=== PATIENT | female | born 1985 | race Caucasian/White ===

== ENCOUNTER 2023-02-18 16:16 | Emergency (ER) | payer OTHER, SELFPAY ==
[2023-02-18 16:20] VITALS: BP 130/92; PULSE 87; RESP 18; TEMP 36.4; O2SAT 100; BMI 22.6
--- NOTE | 2023-02-18 16:34 | EDS_ITS ---
HPI HPI - Female History of Present Illness Chief Complaint: Female C/O Narrative Narrative: 37-year-old female states that she did a home test which was positive. She did it twice last week. Last menstrual period was at the end of December, over a month ago. She states that today she began having vaginal spotting with pinkish tinge to the toilet paper after urination. She had left-sided flank cramping that was very fleeting has resolved. She presents because she has had a history of ectopic , which required D&C she states. They did not remove her fallopian tube, but there is scarring. She is a G3, P1 with her daughter being born 3 years ago. She presents for evaluation because she is from out of town, and before she returns home she wants to make sure that everything is okay. PFSH PFSH Medical History no medical history no medical history Allergy/AdvReac Type Severity Reaction Status Date / Time Penicillins Allergy Hives Verified 02/18/23 16:20 codeine AdvReac headache Verified 02/18/23 16:20 Social History Smoking Status: Never smoker ROS ROS ED ROS Narrative Constitutional: No fever, no chills. HEENT: No sore throat. No neck pain. No loss of vision. No rhinorrhea. Cardiovascular: No chest pain. No palpitations. No pedal edema. Respiratory: No cough, no shortness of breath. Abdominal: No abdominal pain. No nausea. No vomiting. Genitourinary: No dysuria. Questionable hematuria versus vaginal bleeding/spotting. Positive home test last week x2. Musculoskeletal: No myalgias. No arthralgias. Neurologic: No headaches. No dizziness. No lightheadedness. Skin: No rash. No change in color. Psychiatric: No depression. No anxiety. EXAM Physical Exam Narrative Exam Narrative: Afebrile. Vital signs noted. HEENT: Normocephalic. Atraumatic. PERRL, EOMI. Neck soft and supple. No point tenderness or step off. Cardiovascular: Regular rate and rhythm. No murmurs, rubs, or gallops appreciated. Respiratory: No tachypnea. Lungs clear to auscultation bilaterally. Gastrointestinal: Abdomen soft, nontender, with normoactive bowel sounds. No rebound or guarding. Genitourinary: Chaperoned pelvic examination reveals no dried blood externally, no vaginal bleeding, os is closed on bimanual examination. No adnexal t enderness. Neurological: Awake. Alert. Nonfocal, nonlateralizing. Skin: No rash. Normal color. No pallor. Musculoskeletal: No pedal edema. Full range of motion extremities. Const Vital Signs: 02/18/23 16:20 Temperature 97.6 F L Temperature Source Temporal Pulse Rate 87 Respiratory Rate 18 Blood Pressure 130/92 H Blood Pressure Mean 104 Pulse Ox 100 Oxygen Delivery Method Room Air MDM MDM MDM Narrative Medical decision making narrative: Concern would be for ectopic versus early . UTI is in the differential as she states she is having vaginal spotting on the toilet paper with pinkish tinge. Urinalysis will be obtained and sent along with urine . I will also order blood work in the form of CBC, CMP, and quantitative beta-hCG. As she does not know her blood type or if she received RhoGAM after her previous pregnancies, ABO Rh will be obtained I reviewed her laboratory work and she has a normal white count of 7.5, he moglobin normal at 12.1, hematocrit 37.4, platelet count normal at 284. hCG urine is positive. Quantitative measurement is only 270. I do not feel that ultrasound is indicated although initially ordered because there is no evidence of bleeding on her pelvic examination, and she is not having pelvic pain, and her quantitative measurement is still low. She was told that this could be indicative of early or possibly ectopic . Her urinalysis shows no evidence of RBCs or WBCs, and I do not feel antibiotics are indicated. I discussed patient with Dr. Yeager with [employer] who agrees with close outpatient follow-up. I stressed the importance of repeat beta hCG at this facility in 48 hours. While the patient states that she was make an appointment with her [employer] [facility] who is [place] state, she was given strict return instructions to return with any vaginal bleeding or pelvic pain. She does understand the importance as she has had ectopic in the past and risk of rupture. I feel she be discharged safely home with follow-up. She is also to call Dr. Yeager's office in 2 days for close follow-up, and to have her quantitative beta-hCG drawn on [birth year] 21, 1939 8 hours from now. Disposition is discharged home in stable condition. History & Record Review Additional record(s) reviewed:: No prior records Lab Data Attestation: I reviewed the patient's lab results. Labs: Laboratory Results - last 24 hr 02/18/23 16:45 WBC 7.5 RBC 3.85 L Hgb 12.1 Hct 37.4 MCV 97.1 MCH 31.4 MCHC 32.4 RDW Std Deviation 42.5 RDW Coeff of Tania 11.9 Plt Count 284 MPV 10.8 Immature Gran % (Auto) 0.100 Neut % (Auto) 50.3 Lymph % (Auto) 35.4 Lamar % (Auto) 6.8 Eos % (Auto) 6.5 H Baso % (Auto) 0.9 Absolute Neuts (auto) 3.8 Absolute Lymphs (auto) 2.67 Nucleated RBC % 0 HCG, Quant 270 H Urine Color Yellow Urine Clarity Clear Urine pH 6.0 Ur Specific Chaplin 1.015 Urine Protein 15 H Urine Glucose (UA) Normal Urine Ketones 5 H Urine Occult Blood Negative Urine Nitrite Negative Urine Bilirubin Negative Urine Urobilinogen Normal Ur Leukocyte Esterase 25 H Urine RBC 0 SEEN Urine WBC 0-5 SEEN Ur Squamous Epith Cells 0-5 SEEN Urine Bacteria 0 SEEN Urine Mucus 0 SEEN Urine Test Positive H Management Discussion w/another healthcare provider: [facility] (Dr. Yeager) Discharge Plan Triage Chief Complaint: Female C/O ED Provider: Dominguez Phan Dx/Rx/DC Orders Clinical Impression: Headache, test positive Instructions: ED , New Dx Other Ambulatory Orders: HCG BETA-SUBUNIT QUANT. (Routine) Timeframe: 2 Days Facility: [facility] - Location: Laboratory Ordered By: Dominguez Phan Primary Care Provider: Care Physician,No Primary Referrals: Tina Saenz MD [Med Staff - Active Staff] - 2 Days Care Physician,No Primary [Primary Care Provider] - Activity Restrictions/Additional Instructions: It is imperative that you have your beta hCG redrawn at this hospital in 2 days, on Sunday. There should be a laboratory order waiting for you. Follow-up with Dr. Yeager in 2 days as well. Call the office for an appointment. Return with vaginal bleeding, pelvic pain, new or worsening symptoms. Disposition Disposition: Home, Self Care
[2023-02-18 16:48] LABS: Bacteria 0 SEEN /hpf (None Seen); Mucous, Urine 0 SEEN /hpf (<or=2+); Red Blood Cells-Urine 0 SEEN /hpf (0-5)
[2023-02-18 16:51] LABS: Absolute Lymphocyte Count 2.67 X10^3/uL (0.83-4.51); Absolute Neutrophil Count 3.8 X10^3/uL (2.0-7.7); Basophil# 0.07 X10^3/uL; Basophil% 0.9 % (0-1); Eosinophil# 0.49 X10^3/uL; Eosinophils% 6.5 % (0-5); Hematocrit 37.4 % (37-47); Hemoglobin 12.1 g/dL (12.0-15.0); Lymphocyte # 2.67 X10^3/ul (0.83-4.51); Lymphocyte % 35.4 % (19-41); Mean Corp Hgb Conc 32.4 g/dL (32-36); Mean Corpuscular Hgb 31.4 pg (27.0-32.0); Mean Corpuscular Volume 97.1 fL (81-99); Mean Platelet Vol. 10.8 fl (6.2-12.0); Monocyte# 0.51 X10^3/uL; Monocyte% 6.8 % (0-10); NRBC Flagged by Analyzer 0 % (0-5); Neutrophil # 3.79 X10^3/uL (2.7-7.7); Neutrophil % 50.3 % (47-70); Platelet Count 284 K/mm3 (150-450); RBC Distribution Width CV 11.9 % (11.6-14.6); RBC Distribution Width SD 42.5 fl (35.1-43.9); Red Blood Count 3.85 M/mm3 (4.2-5.4); White Blood Count 7.5 K/mm3 (4.4-11.0)
[2023-02-18 16:52] LABS: Color, Urine Yellow (Yellow); Glucose, Dipstick Normal (Normal); Ketone-Dipstick 5 mg/dl (Negative); Leukocyte Esterase-Dipstick 25 /ul (Negative); Nitrite-Dipstick Negative (Negative); Occult Blood-Urine Negative /ul (Negative); Protein-Dipstick 15 mg/dl (Negative); Specific Gravity, Urine 1.015 (1.002-1.030); Urine Bilirubin Dipstick Negative (Negative); Urine Clarity Clear (Clear); Urine Urobilinogen Normal (Normal)
[2023-02-18 17:08] LABS: Internal QC Validated? YES +Cl - CLEAR BKGD; Pregnancy, Urine Positive Negative; Record Kit Lot#,Urine Preg 667200; Squamous Epithelial Cells - UA 0-5 SEEN /hpf (5-10); White Blood Cells 0-5 SEEN /hpf (0-5)
[2023-02-18 17:09] LABS: hCG Titer Quant., Serum 270 mIU/mL (1-3)
== END 2023-02-18 18:31 | disposition home or self-care (01) ==
PROVIDERS: Emergency Provider Emergency Medicine; Visit Provider Emergency Medicine
DX: Z32.01 Encounter for pregnancy test, result positive (principal); R51.9 Headache, unspecified
CPT/HCPCS: 81001; 81025; 84702; 85025; 86900; 86901; 99282